=== PATIENT | female | born 1930 | race Caucasian/White ===

== ENCOUNTER 2016-03-08 12:15 | Emergency (ER) | payer MEDICARE, OTHER ==
[~2016-03-08] VITALS: Ht 167.6 cm; Wt 54.4 kg
[~2016-03-08 12:15] MED LIST: ASPI-605 PO; BISA5TAB10 PO; CALC-513 PO; CARV3.122 PO; CYAN10006 IJ; FOLI1TAB16 PO; FURO40TA5 PO; GABA-534 PO; HYDR2TAB7 PO; MAGN400T26 PO; MEGE40TA PO; MEMA5TAB PO; ONDA4TAB11 PO; POTA-10 PO; SERT50TA12 PO; [UNRECOGNIZED DRUG - CODE] PO
[2016-03-08] MEDS ORDERED: IV NS 0.9% 500 ML IV ONE (12:55)
[2016-03-08] MEDS ORDERED: MORPHINE SULFATE INJ 2 MG/ML DISP.SYRIN ONE (12:55)
[2016-03-08] MEDS ORDERED: IV SET PRIMARY 1 EA INFUS.SET MC ONE (12:55)
[2016-03-08] MEDS ORDERED: ONDANSETRON HCL/PF 4 MG/2 ML VIAL ONE (12:55)
[2016-03-08] MEDS ORDERED: ONDANSETRON HCL/PF 4 MG/2 ML VIAL IVP ONE (13:00)
[2016-03-08] MEDS ORDERED: IV NS 0.9% 500 ML BAG IV ONE (13:00)
[2016-03-08] MEDS ORDERED: MORPHINE SULFATE INJ 2 MG/ML DISP.SYRIN IV ONE (13:00)
[2016-03-08 13:09] LABS: BASOPHILS # (AUTO) 0.2 /CMM (0.0-0.2); BASOPHILS % (AUTO) 1.9 % (0.0-2.0); DIFF TOTAL % 100 %; EOSINOPHILS # (AUTO) 0.2 /CMM (0.0-0.7); EOSINOPHILS % (AUTO) 2.7 % (0.0-6.0); HEMATOCRIT 44 % (33-45); HEMOGLOBIN 14.6 g/dL (11.5-14.8); LYMPHOCYTES # (AUTO) 1.7 /CMM (0.8-4.8); LYMPHOCYTES % (AUTO) 18.7 % (20.0-44.0); MEAN CORPUSCULAR HEMOGLOBIN 30 PG (26.0-33.0); MEAN CORPUSCULAR HGB CONC 33 g/dl (31.0-36.0); MEAN CORPUSCULAR VOLUME 89 fL (82-100); MONOCYTES # (AUTO) 0.4 /CMM (0.1-1.30); MONOCYTES % (AUTO) 4.9 % (2.0-12.0); NEUTROPHILS # (AUTO) 6.5 /CMM (1.8-8.9); NEUTROPHILS % (AUTO) 71.8 % (43.0-81.0); PLATELET COUNT (AUTO) 234 /CMM (150-450)
[2016-03-08 13:17] LABS: ANION GAP 11 (5-14); CALCIUM, SERUM 9.1 mg/dL (8.5-10.1); CARBON DIOXIDE 30 mmol/L (21-32); CHLORIDE 107 mmol/L (98-107); GLUCOSE 107 mg/dL (74-106); POTASSIUM 3.7 mmol/L (3.5-5.1); SODIUM SERUM 144 mmol/L (136-145); UREA NITROGEN, BLOOD 13 mg/dL (7-18)
[2016-03-08 13:23] LABS: ALANINE AMINOTRANSFERASE 20 U/L (12-78); ALBUMIN 3.4 g/dL (3.4-5.0); ASPARTATE AMINOTRANSFERASE 20 U/L (15-37); BILIRUBIN,DIRECT 0.1 mg/dL (0.0-0.2); BILIRUBIN,TOTAL 0.5 mg/dL (0.2-1.0); INDIRECT BILIRUBIN 0.4 mg/dL (0.0-1.1); TOTAL PROTEIN, SERUM 6.6 g/dL (6.4-8.2)
[2016-03-08 13:25] LABS: TROPONIN I < 0.017 ng/mL (0.00-0.056)
[2016-03-08] MEDS ORDERED: BLOO-697 IN (13:33)
[2016-03-08] MEDS ORDERED: NA P133E RC (13:33)
[2016-03-08] MEDS ORDERED: BISA10SU8 RC (13:33)
[2016-03-08] MEDS ORDERED: ASPI-991 PO (13:33)
[2016-03-08] MEDS ORDERED: DOCU-270 PO (13:33)
[2016-03-08] MEDS ORDERED: CALC-7 PO (13:33)
[2016-03-08] MEDS ORDERED: MAGN400O6 PO (13:33)
[2016-03-08] MEDS ORDERED: MIRT15TA PO (13:33)
[2016-03-08] MEDS ORDERED: ATOR10TA PO (13:33)
[2016-03-08] MEDS ORDERED: ACET-868 PO (13:33)
[2016-03-08 16:20] VITALS: BP 137/59
== END 2016-03-08 16:20 | disposition home or self-care (01) ==
LOC: ER 12:17
DX: K80.20 Calculus of gallbladder without cholecystitis without obstruction (principal); G30.9 Alzheimer's disease, unspecified; I70.0 Atherosclerosis of aorta; I48.91 Unspecified atrial fibrillation; Z79.82 Long term (current) use of aspirin
CPT/HCPCS: 36415; 71010; 74176; 80048; 80076; 83690; 84484; 85025; 87081; 93005; 99285; A4606; J7040; J2270; J2405; Z7610

== ENCOUNTER 2016-04-10 13:37 | Inpatient (IN) | payer MEDICARE, OTHER ==
[~2016-04-10] VITALS: Ht 160 cm; Wt 58.6 kg
[~2016-04-10 13:37] MED LIST changes: +ACET-868 PO; -ASPI-605 PO; +ASPI-991 PO; +ATOR10TA PO; +BISA10SU8 RC; -BISA5TAB10 PO; +BLOO-697 IN; -CALC-513 PO; +CALC-7 PO; -CYAN10006 IJ; +DOCU-270 PO; -FOLI1TAB16 PO; -GABA-534 PO; -HYDR2TAB7 PO; +MAGN400O6 PO; -MEGE40TA PO; -MEMA5TAB PO; +MIRT15TA PO; +NA P133E RC; -ONDA4TAB11 PO; -POTA-10 PO; -SERT50TA12 PO; -[UNRECOGNIZED DRUG - CODE] PO
[2016-04-10 15:06] LABS: BASOPHILS % (AUTO) 0.4 % (0.0-2.0); DIFF TOTAL % 100 %; EOSINOPHILS # (AUTO) 0.1 /CMM (0.0-0.7); EOSINOPHILS % (AUTO) 0.6 % (0.0-6.0); HEMATOCRIT 40 % (33-45); HEMOGLOBIN 13.1 g/dL (11.5-14.8); LYMPHOCYTES # (AUTO) 2.2 /CMM (0.8-4.8); MEAN CORPUSCULAR HEMOGLOBIN 29 PG (26.0-33.0); MEAN CORPUSCULAR HGB CONC 33 g/dl (31.0-36.0); MEAN CORPUSCULAR VOLUME 88 fL (82-100); MONOCYTES # (AUTO) 1.1 /CMM (0.1-1.30); MONOCYTES % (AUTO) 9.4 % (2.0-12.0); NEUTROPHILS # (AUTO) 8.2 /CMM (1.8-8.9); NEUTROPHILS % (AUTO) 70.6 % (43.0-81.0); PLATELET COUNT (AUTO) 253 /CMM (150-450); RED BLOOD CELL COUNT(AUTO) 4.48 MIL/uL (4.0-5.2); WHITE BLOOD COUNT (AUTO) 11.6 K/uL (4.3-11.0)
[2016-04-10 15:17] LABS: CALCIUM, SERUM 9.4 mg/dL (8.5-10.1); POTASSIUM 3.5 mmol/L (3.5-5.1)
[2016-04-10 15:20] LABS: INR 0.97 (0.87-1.13); PROTHROMBIN TIME 10.2 SECS (9.5-12.7)
[2016-04-10] MEDS ORDERED: HYDROCODONE/APAP 5/325MG 1 EACH TABLET PO PRN (17:30)
[2016-04-10] MEDS ORDERED: MAG HYDROX/AL HYDROX/SIMETH 30 ML UDC PO PRN (17:30)
[2016-04-10] MEDS ORDERED: BISACODYL SUPP (10 MG) 10 MG/SUPP.RECT SUPP.RECT RC PRN (17:30)
[2016-04-10] MEDS ORDERED: ACETAMINOPHEN 325 MG TABLET PO PRN (17:30)
[2016-04-10] MEDS ORDERED: ONDANSETRON HCL/PF 4 MG/2 ML VIAL IVP PRN (17:30)
[2016-04-10] MEDS ORDERED: ZOLPIDEM TARTRATE 5 MG TABLET PO PRN (17:30)
[2016-04-10] MEDS ORDERED: Z GUARD REMEDY 2 OZ OINT TP PRN (17:30)
[2016-04-10] MEDS ORDERED: MAGNESIUM HYDROXIDE 30 ML UDC PO PRN (17:30)
[2016-04-10] MEDS ORDERED: IV NS 0.9% 1,000 ML ONE (20:17)
[2016-04-10] MEDS ORDERED: IV SET PRIMARY PUMP SET 1 EA INFUS.SET MC ONE (20:18)
[2016-04-10] MEDS: ATORVASTATIN 10 MG TABLET PO SCH (22:00)
[2016-04-10] MEDS: MIRTAZAPINE 15 MG TABLET PO SCH (22:00)
[2016-04-10] MEDS: MORPHINE SULFATE INJ 2 MG/ML DISP.SYRIN IV PRN (23:54)
[2016-04-11 06:30] LABS: BASOPHILS % (AUTO) 0.3 % (0.0-2.0); EOSINOPHILS # (AUTO) 0.1 /CMM (0.0-0.7); EOSINOPHILS % (AUTO) 1.6 % (0.0-6.0); HEMATOCRIT 35 % (33-45); HEMOGLOBIN 11.8 g/dL (11.5-14.8); LYMPHOCYTES # (AUTO) 1.9 /CMM (0.8-4.8); MEAN CORPUSCULAR HEMOGLOBIN 30 PG (26.0-33.0); MEAN CORPUSCULAR HGB CONC 34 g/dl (31.0-36.0); MEAN CORPUSCULAR VOLUME 89 fL (82-100); MONOCYTES # (AUTO) 0.8 /CMM (0.1-1.30); MONOCYTES % (AUTO) 10.6 % (2.0-12.0); NEUTROPHILS # (AUTO) 4.8 /CMM (1.8-8.9); NEUTROPHILS % (AUTO) 62.5 % (43.0-81.0); PLATELET COUNT (AUTO) 212 /CMM (150-450); RED BLOOD CELL COUNT(AUTO) 3.94 MIL/uL (4.0-5.2); WHITE BLOOD COUNT (AUTO) 7.7 K/uL (4.3-11.0)
[2016-04-11 06:41] LABS: CALCIUM, SERUM 8.7 mg/dL (8.5-10.1); CREATININE 0.9 mg/dL (0.6-1.3); PHOSPHORUS 3.3 mg/dL (2.5-4.9); POTASSIUM 3.2 mmol/L (3.5-5.1)
[2016-04-11] MEDS: BLOOD SUGAR DIAGNOSTIC 1 EACH STRIP IN SCH (06:57)
[2016-04-11 08:00] VITALS: BP 110/60
[2016-04-11] MEDS: DOCUSATE SODIUM 100 MG CAPSULE PO SCH ×2 (09:02→17:00)
[2016-04-11] MEDS: PANTOPRAZOLE 40 MG TABLET.DR PO SCH (09:02)
[2016-04-11] MEDS: CALCIUM CARB 250MG /VITAMIN D 1 UDTAB PO SCH (09:02)
[2016-04-11] MEDS: ASPIRIN EC 81 MG TABLET.DR PO SCH (09:02)
[2016-04-11] MEDS: CARVEDILOL 3.125 MG TABLET PO SCH ×2 (09:03→17:00)
[2016-04-11] MEDS: FUROSEMIDE 40 MG TABLET PO SCH (09:05)
[2016-04-11] MEDS: MORPHINE SULFATE INJ 2 MG/ML DISP.SYRIN IV PRN (09:54)
[2016-04-11] MEDS: POTASSIUM CHLORIDE 20 MEQ TAB.PRT.SR PO SCH ×2 (13:24→14:43)
[2016-04-11] MEDS: IV NS 0.9% 1,000 ML IV PRN (13:25)
[2016-04-11 16:00] VITALS: BP 101/64
[2016-04-11 18:00] VITALS: BP 101/64
[2016-04-11] MEDS ORDERED: FENTANYL PF 100MCG/2ML AMPUL ONE (19:33)
[2016-04-11] MEDS ORDERED: HYDROMORPHONE 1 MG/1 ML DISP.SYRIN ONE (20:08)
[2016-04-11] MEDS: MIRTAZAPINE 15 MG TABLET PO SCH (22:00)
[2016-04-11] MEDS: ATORVASTATIN 10 MG TABLET PO SCH (22:00)
[2016-04-12] MEDS: ANCEF 1 GM/50 ML D5W IV SCH ×6 (02:56→18:01)
[2016-04-12 06:55] LABS: BASOPHILS % (AUTO) 0.1 % (0.0-2.0); DIFF TOTAL % 100 %; HEMATOCRIT 33 % (33-45); LYMPHOCYTES # (AUTO) 0.9 /CMM (0.8-4.8); LYMPHOCYTES % (AUTO) 8.7 % (20.0-44.0); MEAN CORPUSCULAR HEMOGLOBIN 30 PG (26.0-33.0); MEAN CORPUSCULAR HGB CONC 33 g/dl (31.0-36.0); MEAN CORPUSCULAR VOLUME 90 fL (82-100); MONOCYTES % (AUTO) 9.2 % (2.0-12.0); NEUTROPHILS # (AUTO) 8.8 /CMM (1.8-8.9); PLATELET COUNT (AUTO) 194 /CMM (150-450); RED BLOOD CELL COUNT(AUTO) 3.69 MIL/uL (4.0-5.2); WHITE BLOOD COUNT (AUTO) 10.8 K/uL (4.3-11.0)
[2016-04-12] MEDS: BLOOD SUGAR DIAGNOSTIC 1 EACH STRIP IN SCH (06:59)
[2016-04-12] MEDS: PANTOPRAZOLE 40 MG TABLET.DR PO SCH (06:59)
[2016-04-12 07:13] LABS: CALCIUM, SERUM 8.4 mg/dL (8.5-10.1)
[2016-04-12 08:00] VITALS: BP 90/58
[2016-04-12] MEDS: IV NS 0.9% 1,000 ML IV PRN (08:54)
[2016-04-12] MEDS: CALCIUM CARB 250MG /VITAMIN D 1 UDTAB PO SCH (08:57)
[2016-04-12] MEDS: ASPIRIN EC 81 MG TABLET.DR PO SCH (08:58)
[2016-04-12] MEDS: CARVEDILOL 3.125 MG TABLET PO SCH ×2 (08:58→16:58)
[2016-04-12] MEDS: DOCUSATE SODIUM 100 MG CAPSULE PO SCH ×2 (08:58→16:57)
[2016-04-12] MEDS: FUROSEMIDE 40 MG TABLET PO SCH (09:00)
[2016-04-12 16:00] VITALS: BP 102/64
[2016-04-12] MEDS ORDERED: ENOXAPARIN SODIUM 40 MG/0.4 ML DISP.SYRIN SQ SCH (17:00)
[2016-04-12 18:00] VITALS: BP 102/64
[2016-04-12 20:00] VITALS: BP 82/69
[2016-04-12] MEDS: ATORVASTATIN 10 MG TABLET PO SCH (21:27)
[2016-04-12] MEDS: MIRTAZAPINE 15 MG TABLET PO SCH (21:27)
[2016-04-13] MEDS: IV NS 0.9% 1,000 ML IV PRN (00:48)
[2016-04-13] MEDS: BLOOD SUGAR DIAGNOSTIC 1 EACH STRIP IN SCH (06:34)
[2016-04-13 08:00] VITALS: BP_SYST 112; BP_SYST 128; BP_DIAS 73; BP_DIAS 80
[2016-04-13] MEDS: PANTOPRAZOLE 40 MG TABLET.DR PO SCH (08:20)
[2016-04-13] MEDS: DOCUSATE SODIUM 100 MG CAPSULE PO SCH ×2 (08:20→17:14)
[2016-04-13] MEDS: CALCIUM CARB 250MG /VITAMIN D 1 UDTAB PO SCH (08:20)
[2016-04-13] MEDS: ASPIRIN EC 81 MG TABLET.DR PO SCH (08:20)
[2016-04-13] MEDS: FUROSEMIDE 40 MG TABLET PO SCH (08:20)
[2016-04-13] MEDS: CARVEDILOL 3.125 MG TABLET PO SCH ×2 (08:21→17:00)
[2016-04-13 08:23] LABS: BASOPHILS % (AUTO) 0.3 % (0.0-2.0); DIFF TOTAL % 100 %; EOSINOPHILS # (AUTO) 0.1 /CMM (0.0-0.7); EOSINOPHILS % (AUTO) 1.3 % (0.0-6.0); HEMATOCRIT 30 % (33-45); HEMOGLOBIN 10.3 g/dL (11.5-14.8); LYMPHOCYTES # (AUTO) 1.3 /CMM (0.8-4.8); LYMPHOCYTES % (AUTO) 13.6 % (20.0-44.0); MEAN CORPUSCULAR HEMOGLOBIN 30 PG (26.0-33.0); MEAN CORPUSCULAR HGB CONC 34 g/dl (31.0-36.0); MEAN CORPUSCULAR VOLUME 88 fL (82-100); MONOCYTES # (AUTO) 1.1 /CMM (0.1-1.30); MONOCYTES % (AUTO) 11.1 % (2.0-12.0); NEUTROPHILS # (AUTO) 7.2 /CMM (1.8-8.9); NEUTROPHILS % (AUTO) 73.7 % (43.0-81.0); PLATELET COUNT (AUTO) 185 /CMM (150-450); RED BLOOD CELL COUNT(AUTO) 3.41 MIL/uL (4.0-5.2); WHITE BLOOD COUNT (AUTO) 9.8 K/uL (4.3-11.0)
[2016-04-13 08:27] LABS: CALCIUM, SERUM 8.2 mg/dL (8.5-10.1); CREATININE 1.1 mg/dL (0.6-1.3); POTASSIUM 3.4 mmol/L (3.5-5.1)
[2016-04-13 16:00] VITALS: BP 99/50
== END 2016-04-13 19:08 | DRG 482 ==
LOC: ER 13:40 → MED 14:58 → MEDSG2 15:44
PROVIDERS: ADMIT Family Medicine; ATTEND Family Medicine
PROC: 0QS606Z Reposition Right Upper Femur with Intramedullary Internal Fixation Device, Open Approach (ICD-10-PCS; principal; 2016-04-11 21:30)
PROC: 05H533Z Insertion of Infusion Device into Right Subclavian Vein, Percutaneous Approach (ICD-10-PCS; 2016-04-12)
PROC: B546ZZA Ultrasonography of Right Subclavian Vein, Guidance (ICD-10-PCS; 2016-04-12)
DX: M80.051A Age-related osteoporosis with current pathological fracture, right femur, initial encounter for fracture (principal); D72.829 Elevated white blood cell count, unspecified; F02.80 Dementia in other diseases classified elsewhere, unspecified severity, without behavioral disturbance, psychotic disturbance, mood disturbance, and anxiety; G30.9 Alzheimer's disease, unspecified; F20.9 Schizophrenia, unspecified; G40.909 Epilepsy, unspecified, not intractable, without status epilepticus; E78.5 Hyperlipidemia, unspecified; F32.9 Major depressive disorder, single episode, unspecified; F39 Unspecified mood [affective] disorder; I48.2 Chronic atrial fibrillation; E87.6 Hypokalemia; W19.XXXA Unspecified fall, initial encounter; Y93.9 Activity, unspecified; Y92.89 Other specified places as the place of occurrence of the external cause; Y99.9 Unspecified external cause status; D64.9 Anemia, unspecified
CPT/HCPCS: 36415; 71010-TC; 73501; 73510-TC; 80048-TC; 82962-TC; 83735-TC; 84100-TC; 84443-TC; 85025-TC; 85730-TC; 86850-TC; 86921-TC; 87081-TC; 93307-TC; 97001-TC; 97003-TC; A4217; A4606; A6209; A6402; C1713; J0690; J1170; J1650; J2270; J3010; J7030; J7060; Z7610

== ENCOUNTER 2017-10-04 20:09 | Inpatient (IN) | payer MEDICARE, OTHER ==
[~2017-10-04] VITALS: Ht 162.6 cm; Wt 59.6 kg
[~2017-10-04 20:09] MED LIST changes: +ASPI-1152 PO; -ASPI-991 PO
--- NOTE | 2017-10-04 20:24 | NUR ---
BIB RA C/C SYCOPAL EPISODE. SECONDARY TO LOW BP. AA/OX4. SKIN'S PINK, WARM, DRY. NO S/S OF SOB. PLACED ON O2 NC 2LPM DUE TO LOW O2 SAT ON ROOM AIR 90%. ALL OTHER VSS. NAD. WILL CONTINUE TO MONITOR. SAFETY MEASURES IN PLACE. CALL LIGHT WITHIN REACH. EKG AT BEDSIDE. LAB AT BEDSIDE.
[2017-10-04] MEDS ORDERED: IV NS 0.9% 500 ML BAG IV ONE (20:30)
[2017-10-04 20:41] LABS: BASOPHILS # (AUTO) 0.2 /CMM (0.0-0.2); BASOPHILS % (AUTO) 1.4 % (0.0-2.0); EOSINOPHILS % (AUTO) 2.4 % (0.0-6.0); HEMATOCRIT 44 % (33-45); HEMOGLOBIN 14.9 g/dL (11.5-14.8); LYMPHOCYTES # (AUTO) 1.6 /CMM (0.8-4.8); MEAN CORPUSCULAR HEMOGLOBIN 31 PG (26.0-33.0); MEAN CORPUSCULAR HGB CONC 34 g/dl (31.0-36.0); MEAN CORPUSCULAR VOLUME 91 fL (82-100); MONOCYTES # (AUTO) 0.9 /CMM (0.1-1.30); MONOCYTES % (AUTO) 6.1 % (2.0-12.0); NEUTROPHILS # (AUTO) 12.5 /CMM (1.8-8.9); NEUTROPHILS % (AUTO) 80.1 % (43.0-81.0); PLATELET COUNT (AUTO) 232 /CMM (150-450); RDW COEFFICIENT OF VARIATION 13.1 (11.5-15.0); RED BLOOD CELL COUNT(AUTO) 4.82 MIL/uL (4.0-5.2); WHITE BLOOD COUNT (AUTO) 15.6 K/uL (4.3-11.0)
--- NOTE | 2017-10-04 20:43 | NUR ---
PT BROUGHT TO CT
[2017-10-04 20:50] LABS: CARBON DIOXIDE 33 mmol/L (21-32); CHLORIDE 104 mmol/L (98-107); CREATININE 1.2 mg/dL (0.6-1.3); GLUCOSE 179 mg/dL (74-106); POTASSIUM 3.3 mmol/L (3.5-5.1); SODIUM SERUM 139 mmol/L (136-145); UREA NITROGEN, BLOOD 20 mg/dL (7-18)
[2017-10-04 20:54] LABS: INR 0.93 (0.85-1.15)
[2017-10-04 20:56] LABS: ALANINE AMINOTRANSFERASE 16 U/L (12-78); ALBUMIN 3.4 g/dL (3.4-5.0); ALKALINE PHOSPHATASE 76 U/L (46-116); ASPARTATE AMINOTRANSFERASE 14 U/L (15-37); BILIRUBIN,DIRECT 0.1 mg/dL (0.0-0.2); BILIRUBIN,TOTAL 0.5 mg/dL (0.2-1.0); TOTAL PROTEIN, SERUM 7.2 g/dL (6.4-8.2)
[2017-10-04 20:58] LABS: TROPONIN I < 0.017 ng/mL (0.00-0.056)
[2017-10-04 21:33] LABS: CREATINE KINASE MB 0.4 ng/mL (0-3.6)
--- NOTE | 2017-10-04 21:54 | NUR ---
PAGED [facility] FOR PANEL - TWIST TESTER ADONAY SANCHEZ
--- NOTE | 2017-10-04 21:56 | NUR ---
CALLED NURSE SUP FOR TELE BED
--- NOTE | 2017-10-04 21:57 | NUR ---
Patient is resting comfortably in bed with eyes closed. Easily aroused. VSS. SAFETY MEASURES IN PLACE. CALL LIGHT WITHIN REACH.
[2017-10-04 22:06] LABS: APPEARANCE,URINE CLOUDY (CLEAR); BILIRUBIN,URINE NEGATIVE (NEGATIVE); BLOOD, URINE TRACE-INTA Ery/uL (NEGATIVE); COLOR,URINE YELLOW (YELLOW); KETONES,URINE TRACE (NEGATIVE); LEUKOCYTE ESTERASE ,URINE 2+ (NEGATIVE); NITRITE, URINE POSITIVE (NEGATIVE); PH,URINE 6.5 (5.0-8.0); PROTEIN,URINE NEGATIVE (NEGATIVE); UGLUCOSE NEGATIVE (NEGATIVE); UROBILINOGEN,URINE 0.2 EU/dL (0.2)
[2017-10-04 22:14] LABS: BACTERIA,URINE Few /HPF (None Seen)
--- NOTE | 2017-10-04 22:14 | NUR ---
CALLED NURSE SUP AGAIN FOR TELE BED
[2017-10-04 22:15] LABS: SQUAMOUS EPITHELIAL CELL,UR Moderate /HPF (None Seen)
--- NOTE | 2017-10-04 22:39 | NUR ---
WE RECEIVED THE BED 323-2 TELE AT THIS TIME
--- NOTE | 2017-10-04 23:01 | NUR ---
REPORT GIVEN TO AIDA SANABRIA
--- NOTE | 2017-10-04 23:06 | NUR ---
PT TRANSP TO TELE. STABLE CONDITION. VSS. NAD.
[2017-10-04 23:10] VITALS: BP 115/55
--- NOTE | 2017-10-04 23:10 | NUR ---
PT ARRIVED ON UNIT VIA GURNEY. A/O X1 AND RESPONSIVE , WITH NO DISTRESS NOTED , O2 VIA NC 2L IN PLACE, PT 'S VS ARE STABLE . ADMITTING FIRE PREVENTION OFFICER ADM LAURA. DIAGNOSES SYNCOPE , UTI , AMS SKIN INTACT. WILL FOLLOW UP ADMITTING ORDERS
[2017-10-04 23:54] VITALS: BP 115/55
[2017-10-05] MEDS ORDERED: CEFTRIAXONE 1 G in IV D5W 50 ML IV SCH ×2
[2017-10-05] MEDS ORDERED: HYDROCODONE/APAP 5/325MG 1 EACH TABLET PO PRN
[2017-10-05] MEDS ORDERED: ZOLPIDEM TARTRATE 5 MG TABLET PO PRN
[2017-10-05] MEDS ORDERED: Z GUARD REMEDY 2 OZ OINT TP PRN
[2017-10-05] MEDS ORDERED: POTASSIUM CHLORIDE 20 MEQ TAB.PRT.SR PO ONE
[2017-10-05] MEDS ORDERED: ONDANSETRON HCL/PF 4 MG/2 ML VIAL IVP PRN
[2017-10-05] MEDS ORDERED: ENOXAPARIN SODIUM 40 MG/0.4 ML DISP.SYRIN SQ SCH
[2017-10-05] MEDS ORDERED: CEFTRIAXONE 1 G VIAL ONE (00:06)
[2017-10-05 04:17] VITALS: BP 97/55
--- NOTE | 2017-10-05 06:48 | NUR ---
ANIMAL SERVICES OFFICER CLOSING NOTES A/O X1-2 SLEEPING AT THIS TIME , WITH NO DISTRESS NOTED , O2 VIA NC 2L IN PLACE, PT 'S VS ARE STABLE.SAFETY PRECAUTIONS IN PLACE, CALL LIGHT WITHIN REACH. WILL ENDORSE TO NEXT SHIFT FOR RAFAEL.
--- NOTE | 2017-10-05 07:30 | NUR ---
RN NOTES: PATIENT RESTING IN BED. NONLABORED BREATHING NOTED ON 2 L NASAL CANNULA. PATIENT SR ON TELE MONITOR WITH 65 BPM. PATIENT AOX1-2. IV SITE ON LEFT AC GAUGE 18 PATENT AND INTACT. BED IN LOWEST LOCKED POSITION,. CALL LIGHT WITHIN REACH.
[2017-10-05 08:00] VITALS: BP 93/51
[2017-10-05] MEDS ORDERED: IV NS 0.9% 1,000 ML IV PRN ×2 (08:05)
[2017-10-05 08:27] LABS: BASOPHILS % (AUTO) 0.3 % (0.0-2.0); EOSINOPHILS % (AUTO) 3.9 % (0.0-6.0); HEMATOCRIT 38 % (33-45); HEMOGLOBIN 12.6 g/dL (11.5-14.8); LYMPHOCYTES # (AUTO) 1.8 /CMM (0.8-4.8); LYMPHOCYTES % (AUTO) 19.1 % (20.0-44.0); MEAN CORPUSCULAR HEMOGLOBIN 31 PG (26.0-33.0); MEAN CORPUSCULAR HGB CONC 34 g/dl (31.0-36.0); MEAN CORPUSCULAR VOLUME 93 fL (82-100); MONOCYTES # (AUTO) 0.7 /CMM (0.1-1.30); MONOCYTES % (AUTO) 7.9 % (2.0-12.0); NEUTROPHILS # (AUTO) 6.5 /CMM (1.8-8.9); NEUTROPHILS % (AUTO) 68.8 % (43.0-81.0); PLATELET COUNT (AUTO) 210 /CMM (150-450); RDW COEFFICIENT OF VARIATION 14.1 (11.5-15.0); RED BLOOD CELL COUNT(AUTO) 4.05 MIL/uL (4.0-5.2); WHITE BLOOD COUNT (AUTO) 9.4 K/uL (4.3-11.0)
--- NOTE | 2017-10-05 08:40 | NUR ---
PATIENT REMOVED IV LINE AT 0810. PATIENT STATED " IT HURT SO I TOOK IT OFF." NEW IV LINE INSERTED ON LEFT FA GAUGE 22 PATENT AND INTACT
[2017-10-05 08:45] LABS: CHOLESTEROL 113 mg/dL (<200); HDL CHOLESTEROL 51 mg/dL (40-60); LDL 55 mg/dL (0-99); TRIGLYCERIDES 72 mg/dL (30-150)
[2017-10-05] MEDS ORDERED: ASPIRIN EC 81 MG TABLET.DR PO SCH (09:00)
[2017-10-05] MEDS ORDERED: FUROSEMIDE 40 MG TABLET PO SCH (09:00)
[2017-10-05] MEDS: IV NS 0.9% 1,000 ML IV SCH ×2 (09:06→14:44)
[2017-10-05] MEDS: CARVEDILOL 3.125 MG TABLET PO SCH ×2 (09:20→17:10)
--- NOTE | 2017-10-05 09:54 | NUR ---
SR 69 ON EKG
[2017-10-05] MEDS: DOCUSATE SODIUM 100 MG CAPSULE PO SCH ×2 (09:57→17:11)
[2017-10-05] MEDS: CALCIUM CARB 250MG /VITAMIN D 1 UDTAB PO SCH (09:58)
[2017-10-05] MEDS: MAGNESIUM OXIDE 400 MG TABLET PO SCH (09:58)
[2017-10-05] MEDS: POTASSIUM CHLORIDE 20 MEQ TAB.PRT.SR PO SCH ×3 (09:58→15:00)
[2017-10-05 10:47] LABS: CALCIUM, SERUM 8.5 mg/dL (8.5-10.1); CARBON DIOXIDE 24 mmol/L (21-32); CHLORIDE 108 mmol/L (98-107); CREATININE 1.1 mg/dL (0.6-1.3); GLUCOSE 109 mg/dL (74-106); MAGNESIUM 2.1 mg/dL (1.8-2.4); PHOSPHORUS 3.4 mg/dL (2.5-4.9); POTASSIUM 3.7 mmol/L (3.5-5.1); SODIUM SERUM 144 mmol/L (136-145); UREA NITROGEN, BLOOD 18 mg/dL (7-18)
[2017-10-05 10:56] LABS: THYROID STIMULATING HORMONE 1.942 uIU/mL (0.358-3.74)
[2017-10-05 11:18] LABS: TROPONIN I < 0.017 ng/mL (0.00-0.056)
[2017-10-05 12:02] VITALS: BP 106/67
--- NOTE | 2017-10-05 15:00 | NUR ---
PATIENT REFUSING 2ND DOSE OF POTASSIUM. BENEFITS AND RISKS EXPLAINED. PATIENT STATING "NO I ALREADY HAD ONE."
[2017-10-05 15:10] VITALS: BP_SYST 102; BP_SYST 98; BP_DIAS 46; BP_DIAS 48; BP_DIAS 50
[2017-10-05 16:00] VITALS: BP 106/48
--- NOTE | 2017-10-05 19:35 | NUR ---
RN NOTES: PATIENT RESTING IN BED. NONLABORED BREATHING NOTED ON 2 L NASAL CANNULA. PATIENT SR ON TELE MONITOR WITH 66. PATIENT AOX1-2. IV SITE ON LEFT fa 22 gauge PATENT AND INTACT. BED IN LOWEST LOCKED POSITION,. CALL LIGHT WITHIN REACH. FALL PRECAUTIONS AND ASPIRATION PRECAUTIONS IMPLEMENTED THROUGHOUT SHIFT. NO SIGNS OF BLEEDING NOTED ENDORSED TO VIKTORIA BILLINGS
--- NOTE | 2017-10-05 19:40 | NUR ---
RN OPENING NOTES RECEIVED REPORT FROM DAYSDCFT AWA MAHAN. FOUND Pt AWAKE, RESTING IN BED. NO S/S OF ACUTE DISTRESS OR SOB NOTED. Pt IS A/OX1-2, WITH DEMENTIA; IS VERBAL AND ABLE MAKE NEEDS KNOWN. ON TELE MONITOR WITH SR. IV ACCESS ON LFA #22G, IVF NS @75ML/HR. SAFETY MEASURES IN PLACE. BED LOW, LOCKED, HOB ELEVATED, SIDE RAILS UP, CALL LIGHT AND BEDSIDE TABLE WITHIN REACH. BED ALARM ON. WILL CONTINUE TO MONITOR Pt THROUGHOUT THE NIGHT FOR SAFETY.
[2017-10-05 20:00] VITALS: BP 118/70
[2017-10-05] MEDS ORDERED: ATORVASTATIN 10 MG TABLET PO SCH (22:00)
[2017-10-05] MEDS: CEFTRIAXONE 1 G in IV D5W 50 ML IV SCH (22:06)
[2017-10-05] MEDS: MIRTAZAPINE 15 MG TABLET PO SCH (22:08)
[2017-10-05] MEDS: ENOXAPARIN SODIUM 30 MG/0.3 ML DISP.SYRIN SQ SCH (22:08)
--- NOTE | 2017-10-05 23:41 | NUR ---
RN NOTES NEW IV ACCESS STARTED ON LFA #22G.
[2017-10-06] VITALS: BP 112/76
[2017-10-06 04:00] VITALS: BP 112/59
--- NOTE | 2017-10-06 06:35 | NUR ---
RN CLOSING NOTES NO SIGNIFICANT CHANGES IN Pt's CONDITION. Pt REMAINS STABLE AT THIS TIME. NO S/S OF ACUTE DISTRESS OR SOB NOTED DURING THE NIGHT. ALL NEEDS MET AND ATTENDED TO. SAFETY MEASURES IN PLACE. BED LOW, LOCKED, HOB ELEVATED, SIDE RAILS UP, CALL LIGHT AND BEDSIDE TABLE WITHIN REACH. WILL ENDORSE TO DAYSHIFT RN FOR Pt's RAFAEL.
[2017-10-06 06:58] LABS: BASOPHILS % (AUTO) 0.4 % (0.0-2.0); HEMATOCRIT 34 % (33-45); HEMOGLOBIN 11.6 g/dL (11.5-14.8); LYMPHOCYTES # (AUTO) 2.2 /CMM (0.8-4.8); LYMPHOCYTES % (AUTO) 33.1 % (20.0-44.0); MEAN CORPUSCULAR HEMOGLOBIN 31 PG (26.0-33.0); MEAN CORPUSCULAR HGB CONC 34 g/dl (31.0-36.0); MEAN CORPUSCULAR VOLUME 93 fL (82-100); MONOCYTES # (AUTO) 0.7 /CMM (0.1-1.30); MONOCYTES % (AUTO) 10.3 % (2.0-12.0); NEUTROPHILS # (AUTO) 3.4 /CMM (1.8-8.9); NEUTROPHILS % (AUTO) 50.2 % (43.0-81.0); PLATELET COUNT (AUTO) 198 /CMM (150-450); RDW COEFFICIENT OF VARIATION 14.2 (11.5-15.0); WHITE BLOOD COUNT (AUTO) 6.8 K/uL (4.3-11.0)
[2017-10-06 07:08] LABS: ALANINE AMINOTRANSFERASE 13 U/L (12-78); ALBUMIN 2.5 g/dL (3.4-5.0); ALKALINE PHOSPHATASE 43 U/L (46-116); ASPARTATE AMINOTRANSFERASE 14 U/L (15-37); BILIRUBIN,TOTAL 0.3 mg/dL (0.2-1.0); CALCIUM, SERUM 7.9 mg/dL (8.5-10.1); CARBON DIOXIDE 27 mmol/L (21-32); CHLORIDE 113 mmol/L (98-107); GLUCOSE 94 mg/dL (74-106); MAGNESIUM 1.8 mg/dL (1.8-2.4); PHOSPHORUS 2.3 mg/dL (2.5-4.9); POTASSIUM 3.4 mmol/L (3.5-5.1); SODIUM SERUM 146 mmol/L (136-145); TOTAL PROTEIN, SERUM 5.6 g/dL (6.4-8.2); UREA NITROGEN, BLOOD 17 mg/dL (7-18)
--- NOTE | 2017-10-06 07:10 | NUR ---
TELE/RN OPENING NOTE PATIENT IS RECEIVED IN BED AWAKE. ALERT AND ORIENTED X2. NOTED WITH EPISODES OF FORGETFULNESS AND CONFUSION. REMINDERS AND REORIENTATION GIVEN NEEDED. DENIES SOB. RESPIRATION REGULAR AND UNLABORED. DENIES PAIN. PATIENT IN NO APPARENT DISTRESS. VERBAL CUES ARE GIVEN TO INCREASE SAFETY AWARENESS LFA G 22 PATENT AND IV FLUIDS INFUSING WITH NO S/S INFILTRATION. BED LOW AND LOCKED. SIDE RAILS UP X3. CALL LIGHT WITHIN REACH. WILL CONTINUE TO MONITOR.
--- NOTE | 2017-10-06 07:48 | NUR ---
TELE/RN NOTE PATIENT IS ON TELE MONITOR AND SHOWING SR 80.
[2017-10-06 08:00] VITALS: BP 117/66
[2017-10-06] MEDS: MAGNESIUM OXIDE 400 MG TABLET PO SCH (08:30)
[2017-10-06] MEDS: DOCUSATE SODIUM 100 MG CAPSULE PO SCH ×2 (08:30→17:31)
[2017-10-06] MEDS: CALCIUM CARB 250MG /VITAMIN D 1 UDTAB PO SCH (08:30)
[2017-10-06] MEDS: CARVEDILOL 3.125 MG TABLET PO SCH ×2 (08:31→17:31)
[2017-10-06] MEDS ORDERED: POTASSIUM PHOSPHATE MM 15 MMOL in IV D5W 250 ML IV SCH (09:30)
[2017-10-06] MEDS: POTASSIUM PHOSPHATE MM 7.5 MMOL in IV D5W 100 ML IV SCH ×2 (10:36→13:24)
[2017-10-06 16:00] VITALS: BP 124/100
--- NOTE | 2017-10-06 18:55 | NUR ---
MS/RN CLOSING NOTE PATIENT ALERT AND ORIENTED X2. DENIES PAIN. RESPIRATION REGULAR AND UNLABORED. DENIES PAIN. PATIENT IN NO APPARENT DISTRESS. LFA G 22 PATENT AND SALINE LOCKED. PATIENT HAS 1:1 SITTER. BED LOW AND LOCKED. SIDE RAILS UP X3. CALL LIGHT WITHIN REACH. WILL ENDORSE TO APARTMENT MAINTENANCE SUPERVISOR.
[2017-10-06 20:00] VITALS: BP 126/70
--- NOTE | 2017-10-06 20:00 | NUR ---
RN NOTES PATIENT IS ALERT AND ORIENTED X2, CONFUSED, RESTLESS AT TIMES, ANSWERS SIMPLE QUESTION, NO SOB, NO COMPLAIN OF PAIN, CONTINENT OF BOWEL AND BLADDER, FALL RISK, GETS OUT OF BED UNASSISTED, UNSTEADY GAIT AND HAS TENDENCY TO WANDER IN HALLWAY LOOKING FOR FRIENDS. ONE ON ONE SITTER AT THE BEDSIDE FOR SAFETY, WILL CONTINUE TO MONITOR
[2017-10-06] MEDS: ENOXAPARIN SODIUM 30 MG/0.3 ML DISP.SYRIN SQ SCH (20:42)
[2017-10-06] MEDS: CEFTRIAXONE 1 G in IV D5W 50 ML IV SCH (21:01)
[2017-10-06] MEDS: MIRTAZAPINE 15 MG TABLET PO SCH (21:01)
--- NOTE | 2017-10-07 07:00 | NUR ---
RN NOTES PATIENT IS AWAKE AND ALERT, NO SOB, NO DISTRESS,NO COMPLAIN OF PAIN, EPISODES OF RESTLESSNESS, GETTING OUT OF BED, ONE ON ONE SITTER AT THE BEDSIDE FOR SAFETY. NO CHANGE OF CONDITION DURING SHIFT, KEPT SAFE, CALL LIGHT WITHIN REACH
[2017-10-07 08:00] VITALS: BP 131/58
--- NOTE | 2017-10-07 08:00 | NUR ---
m/s bacon de rinder: initial assessment received pt in bed sounds asleep, but easily arousable. sitter at bedside. no s/s of discomfort. for d'c planning back to snf. will continue to monitor.
[2017-10-07 09:02] VITALS: BP 131/58
[2017-10-07] MEDS: CARVEDILOL 3.125 MG TABLET PO SCH (09:02)
[2017-10-07] MEDS: MAGNESIUM OXIDE 400 MG TABLET PO SCH (09:02)
[2017-10-07] MEDS: CALCIUM CARB 250MG /VITAMIN D 1 UDTAB PO SCH (09:02)
[2017-10-07] MEDS: DOCUSATE SODIUM 100 MG CAPSULE PO SCH (09:02)
[2017-10-07] MEDS: POTASSIUM CHLORIDE 20 MEQ TAB.PRT.SR PO SCH ×2 (09:11→10:20)
--- NOTE | 2017-10-07 10:15 | NUR ---
m/s behavioral geneticist: md visit seen and examined by dr. correa at this time. for d'c planning today per md. awaiting order. pt made aware. sitter remains at bedside. will continue to monitor.
[2017-10-07] MEDS ORDERED: CEPH-569 PO (11:48)
--- NOTE | 2017-10-07 11:48 | NUR ---
m/s shotblast equipment operator: notes received order from dr. correa to discharge pt back to snf. order acknowledged. case management will make arrangement. left message to yaritza (son) [phone] via voice mail; also notified the other number [phone], spoke to crys (dtr-in-law) and made aware re: d'c back to snf this afternoon and will relay message to her .
--- NOTE | 2017-10-07 12:00 | NUR ---
m/s women designer: notes [facility] notified, but admitting nurse not picking up call at this time, will attempt later today.
--- NOTE | 2017-10-07 12:35 | NUR ---
m/s compressor station chief engineer: notes 2nd attempt to give report to [facility], but admitting nurse still not picking up after 2 attempts of transferring call by hydraulic oil tool operator.
--- NOTE | 2017-10-07 13:30 | NUR ---
m/s piece work inspector: notes [facility] notified for the 3rd time and spoke to leta (rn admitting) and report given for continuity of care. pt unable to sign discharge papers due to cognitive impairment. 2 licensed staff signed all d'c papers and copy to be given to ambulance crew to give to snf. awaiting for ambulance.
--- NOTE | 2017-10-07 14:30 | NUR ---
m/s tree marker: notes h/l removed with tip intact with no bleeding, no redness, and no swelling noted. ambulance here and report given to one of the crew.
--- NOTE | 2017-10-07 14:35 | NUR ---
m/s collision technician: discharged discharged to snf in stable condition with all valuables and d'c papers via ambulance.
== END 2017-10-07 14:50 | DRG 73 ==
LOC: ER 20:11 → TELE 22:44 → MED 10-06 10:10
PROVIDERS: ADMIT Nurse Practitioner Acute Care; ATTEND Nurse Practitioner Acute Care
DX: G90.8 Other disorders of autonomic nervous system (principal); N17.0 Acute kidney failure with tubular necrosis; G93.41 Metabolic encephalopathy; N39.0 Urinary tract infection, site not specified; J98.11 Atelectasis; G30.9 Alzheimer's disease, unspecified; F02.80 Dementia in other diseases classified elsewhere, unspecified severity, without behavioral disturbance, psychotic disturbance, mood disturbance, and anxiety; E78.5 Hyperlipidemia, unspecified; G40.909 Epilepsy, unspecified, not intractable, without status epilepticus; I48.91 Unspecified atrial fibrillation; Z87.81 Personal history of (healed) traumatic fracture; F32.9 Major depressive disorder, single episode, unspecified; Z79.82 Long term (current) use of aspirin; Z99.81 Dependence on supplemental oxygen; Z87.891 Personal history of nicotine dependence; Z79.899 Other long term (current) drug therapy; E87.6 Hypokalemia; E86.0 Dehydration; J44.9 Chronic obstructive pulmonary disease, unspecified; R73.9 Hyperglycemia, unspecified; J01.00 Acute maxillary sinusitis, unspecified; Z86.73 Personal history of transient ischemic attack (TIA), and cerebral infarction without residual deficits; B96.20 Unspecified Escherichia coli [E. coli] as the cause of diseases classified elsewhere; E83.39 Other disorders of phosphorus metabolism
CPT/HCPCS: 36415; 70450-TC; 71045-TC; 80048-TC; 80053-TC; 80061-TC; 80076-TC; 81000-TC; 82306; 82550-TC; 82553-TC; 82962-TC; 83605-TC; 83735-TC; 84100-TC; 84439-TC; 84443-TC; 84484-TC; 85025-TC; 85730-TC; 87081-TC; 87086-TC; 87186-TC; 93307-TC; 93880-TC; A4606; J0696; J1650; J3490; J7030; J7050; J7060